=== PATIENT | female | born 1995 | race Caucasian/White ===

== ENCOUNTER 2022-03-11 08:47 | Emergency (ER) | payer BC ==
--- OUTSIDE RECORDS SUMMARY | 2022-03-11 08:50 | XMS REPORT | Continuity of Care Document ---
:1995 Author Organization [facility] t Address [address] [place] [address] Care Team Providers Name Role Phone Mari Haynes MD Primary Care Physician Kera Méndez Attending Clinician Kera Méndez Admitting Clinician Problems Condition Condition Condition Status Onset Resolution Last Treating Co mments Source Name Details Category Date Date Treatment Clinician Date Normal Normal Disease Active Methodi labor labor -20 st 00:00: Hospita 00 l Disease Active Met hodi 5-19 st 00:00: Hospita 00 l Diagnosis Active 2017-2018-06-22 Mem oria ANATOMY US ANATOMY US 06-22 10:57:00 l FOR FOR 10:45: Sravan ANOMALIES, ANOMALIES, 00 CX LENGT CX LENGT Active 06/22/2017 Elbert Episode of Episode of Problem Active C ommon heavy heavy Spirit vaginal vaginal - [facility] bleeding bleeding [facility] Missed Missed Diagnosis Active Common menses menses [facility] Encounter Encounter Problem 2019-01-10 Memoria for for 11:09:45 l Herm arsenio screening screening for for malformati malformati ons ons 01/10/2019 MH Elbert 21 weeks 21 weeks Problem 2019-01-10 Memoria gestation gestation 11:09:45 l of of [place] 01/10/2019 Elbert Dyspareuni Dyspareuni Problem Active C ommon a in a in Spirit female female [facility] History of Past Illness Condition Condition Condition Status Onset Resolution Last Treating Co mments Source Name Details Category Date Date Treatment Clinician Date Encounter Problem 2018-2019-01-10 2019-01-10 Memoria for Encounter 1-16 11:09:45 11:09:45 l for 05:31: Sravan screening 29 for screening cervical for length cervical length 06/27/2018 01/10/2019 Elbert Allergies, Adverse Reactions, Alerts This patient has no known allergies or adverse reactions. Family History Family Member Diagnosis Comments Start Date Stop Date Source Natural father Hypertension [facility] Natural mother Hypertension [facility] Paternal grandfather Diabetes [facility] Paternal grandmother Diabetes [facility] Social History Social Habit Start Date Stop Date Quantity Comments Source History SDVT [facility] Drinks History [facility] Alcohol intake 2018-10-29 2018-10-29 Current [facility] 00:00:00 00:00:00 non-drinker of Hospital alcohol (finding) History [facility] 2018-10-29 2018-10-29 1 [facility] Alcohol Frequency 00:00:00 00:00:00 Hospita l Tobacco use and 2018-10-19 2018-10-19 Smokeless tobacco [facility] exposure 00:00:00 00:00:00 non-user Hospital Sex Assigned At [birth year] [facility] 00:00:00 [facility]:00 Hospital Smoking Status Start Date Stop Date Source Never smoked tobacco [facility] Medications Ordered Filled Start Stop Current Ordering Indication Dosage Frequency Signature Comments Components Source Medication Medication Date Date Medication? Clinician (SIG) Name Name Yes 1{tbl} QD Take 1 Metho di vit,calc76- 5-22 tablet by iron-folic 13:45: mouth Hospit a 29 mg iron- 51 daily. l 1 mg tablet per tablet Mirena (52 Mirena (52 2017- No Abi not Common MG) MG) 10-17 Rowe defined Spirit 00:00 - [facility] :00 [facility] Immunizations Ordered Immunization Filled Immunization Date Status Commen ts Source Name Name Rho (D) Immune 2018-10-30 Completed [facility] Globulin 00:00:00 Hospital Procedures This patient has no known procedures. Plan of Care Planned Activity Planned Date Details Comments Source Future Scheduled 2022-03-11 HEPATITIS B [facility] Test 08:49:33 VACCINES (1 of 3 - 3-dose series) [code = HEPATITIS B VACCINES (1 of 3 - 3-dose series)] Future Scheduled 2022-03-11 COVID-19 VACCINE [facility] Test 08:49:33 (#1) [code = COVID-19 VACCINE (#1)] Future Scheduled 2022-03-11 Screening for [facility] Test 08:49:33 malignant neoplasm of cervix (procedure) [code = 526643818] Future Scheduled 2022-03-11 INFLUENZA VACCINE [facility] Test 08:49:33 [code = INFLUENZA VACCINE] Encounters Start End Encounter Admission Attending Care Care Encounter Source Date/Time Date/Time Type Type Clinicians Facility Department ID 2018-06-22 2018-06-23 Outpatient nullFlavo [facility] [id number] Memoria 16:49:00 05:59:00 r Sravan 01 l Elbert Nandini 2018-06-22 2018-06-22 Outpatient JUSTIN MéndezSL [facility] [id number] 10:49:00 23:59:00 Kera Jazmín 2018-03-28 2018-04-20 PreReg nullFlavo [facility] [id number] Memoria 20:06:50 21:00:00 r [place] 00 l Elbert Nandini 2018-03-28 2018-04-20 Outpatient JUSTIN MéndezSL S [id number] 15:06:50 15:00:00 Kera 00 Jazmín 2018-01-24 2018-01-24 Outpatient Jean Penat 15 [id number] Common 09:00:00 09:00:00 [facility] 2018-01-23 2018-01-23 [facility] [id number] Common 15:52:00 15:52:00 [facility] 2017-11-09 2017-11-09 [place]patient [place] [id number] Common 16:00:00 16:00:00 t [facility] Results This patient has no known results.
[2022-03-11 09:21] LABS: Urine Blood 2+ (Negative); Urine Glucose Trace (Negative); Urine Protein Trace (Negative); Urine pH 5.5 (5.0-7.0)
[2022-03-11 09:49] LABS: Absolute Lymphocytes (CBC) 1.6 K/uL (0.7-4.9); Hematocrit 37.8 % (36.0-45.0); Lymphocytes % 22.3 % (15.3-44.8); MPV 6.6 fL (7.6-11.3); RBC Red Blood Cell Count 4.35 M/uL (3.86-4.86)
[2022-03-11 10:08] LABS: Potassium 3.9 mmol/L (3.5-5.1)
--- NOTE | 2022-03-11 10:57 | RAD REPORT ---
EXAM DESCRIPTION: US - Transvaginal Study Probe - 03/11/2022 10:42 am CLINICAL HISTORY: with vaginal bleeding COMPARISON: 2018 FINDINGS: The uterus measures 6 x 4 x 5 cm. A fibroid is not seen. The endometrial stripe measures 5 millimeters. A gestational sac is not seen. The ovaries are normal in size and echotexture. Prominent small follicles right ovary. 1.6 centimeter follicle left ovary The right and left adnexa unremarkable No significant free fluid is seen. IMPRESSION: Nonvisualization of a gestational sac within the endometrium. This may represent an early intrauterine in which the gestational sac is not yet seen. Abor tion and even an ectopic can also have this appearance. This all should be correlated clini ghanshyam and with serial beta HCG levels. Follow up endovaginal sonogram in 1 week is recommended
--- NOTE | 2022-03-11 11:51 | EDPHYS ---
Physician Documentation [facility] Name: Eileen Lundberg Age: 27 yrs Sex: Female : 1995 Arrival Date: 03/11/2022 Time: 08:48 Bed 4 Private MD: ED Physician David Bethea HPI: 03/11 11:22 This 27 yrs old Female presents to ER via Ambulatory with complaints of some jl9 vaginal bleeding/ spotting last week and then today. Patient thought she was on her period last week. Patient denies any pain. . WHARFINGER CHIEF: 09:06 LMP 02/25/2022 ss 09:10 2, Full Term 1, Premature 0, 0, Living 1 aa5 Historical: - Allergies: 09:06 No Known Allergies; ss - Home Meds: 09:06 None [Active]; ss - PMHx: 09:06 None; ss - PSHx: 09:06 None; ss - Immunization history:: Client reports receiving the 2nd dose of the Covid vaccine. - Social history:: Smoking status: Patient denies any tobacco usage or history of. ROS: 11:34 Constitutional: Negative for fever, chills, and weight loss, Eyes: Negative for injury, jl9 pain, redness, and discharge, ENT: Negative for injury, pain, and discharge, Neck: Negative for injury, pain, and swelling, Cardiovascular: Negative for chest pain, palpitations, and edema, Respiratory: Negative for shortness of breath, cough, wheezing, and pleuritic chest pain, Abdomen/GI: Negative for abdominal pain, nausea, vomiting, diarrhea, and constipation, Back: Negative for injury and pain. 11:34 MS/Extremity: Negative for injury and deformity, Skin: Negative for injury, rash, and discoloration, Neuro: Negative for headache, weakness, numbness, tingling, and seizure, Psych: Negative for depression, anxiety, suicide ideation, homicidal ideation, and hallucinations, Allergy/Immunology: Negative for hives, rash, and allergies, Endocrine: Negative for neck swelling, polydipsia, polyuria, polyphagia, and marked weight changes, Hematologic/Lymphatic: Negative for swollen nodes, abnormal bleeding, and unusual bruising. 11:34 : Positive for hematuria, vaginal bleeding. Exam: 11:35 Constitutional: This is a well developed, well nourished patient who is awake, alert, jl9 and in no acute distress. Head/Face: Normocephalic, atraumatic. Eyes: Pupils equal round and reactive to light, extra-ocular motions intact. Lids and lashes normal. Conjunctiva and sclera are non-icteric and not injected. Cornea within normal limits. Periorbital areas with no swelling, redness, or edema. ENT: Mucous membranes moist. Neck: Trachea midline, no thyromegaly or masses palpated, and no cervical lymphadenopathy. Supple, full range of motion without nuchal rigidity, or vertebral point tenderness. No Meningismus. Chest/axilla: Normal chest wall appearance and motion. Nontender with no deformity. No lesions are appreciated. Cardiovascular: Regular rate and rhythm with a normal S1 and S2. No gallops, murmurs, or rubs. Normal PMI, no JVD. No pulse deficits. Respiratory: Lungs have equal breath sounds bilaterally, clear to auscultation and percussion. No rales, rhonchi or wheezes noted. No increased work of breathing, no retractions or nasal flaring. Abdomen/GI: Soft, non-tender, with normal bowel sounds. No distension or tympany. No guarding or rebound. No evidence of tenderness throughout. Back: No spinal tenderness. No costovertebral tenderness. Full range of motion. 11:35 Skin: Warm, dry with normal turgor. Normal color with no rashes, no lesions, and no evidence of cellulitis. MS/ Extremity: Pulses equal, no cyanosis. Neurovascular intact. Full, normal range of motion. Neuro: Awake and alert, GCS 15, oriented to person, place, time, and situation. Cranial nerves II-XII grossly intact. Motor strength 5/5 in all extremities. Sensory grossly intact. Cerebellar exam normal. Normal gait. Psych: Awake, alert, with orientation to person, place and time. Behavior, mood, and affect are within normal limits. 11:35 : CVA tenderness, is absent, Pelvic Exam: The exam is refused by the patient/guardian. The risks and consequences are understood by the patient. Vital Signs: 09:04 BP 132 / 86; Pulse 71; Resp 14; Temp 98.5(TE); Pulse Ox 99% on R/A; Weight 52.16 kg; ss Height 5 ft. 2 in. (157.48 cm); Pain 07/22; 09:04 Body Mass Index 21.03 (52.16 kg, 157.48 cm) ss MDM: 09:09 Patient medically screened. 9 11:37 Data reviewed: vital signs, nurses notes, lab test result(s), radiologic studies. Counseling: I had a detailed discussion with the patient and/or guardian regarding: the historical points, exam findings, and any diagnostic results supporting the discharge/admit diagnosis, lab results, radiology results, the need for outpatient follow up, an OB/Gyne specialist, to return to the emergency department if symptoms worsen or persist or if there are any questions or concerns that arise at home. 03/11 09:16 Order name: Basic Metabolic Panel [facility] 03/11 09:16 Order name: CBC with Diff 03/11 09:16 Order name: Quantitative Hcg [facility] 03/11 09:21 Order name: Urine --Ancillary (enter results) 03/11 09:21 Order name: Urine Dipstick-Ancillary; Complete Time: 10:25 EDCT 03/11 09:35 Order name: Urine --Ancillary; Complete Time: 10:25 [facility] 03/11 09:16 Order name: IV Saline Lock; Complete Time: 09:38 03/11 09:16 Order name: Labs collected and sent; Complete Time: 09:38 03/11 09:16 Order name: NPO; Complete Time: 09:20 [facility] 03/11 09:16 Order name: OB Limited US 03/11 09:51 Order name: CBC with Automated Diff; Complete Time: 10:25 EDCT 03/11 10:08 Order name: Basic Metabolic Panel; Complete Time: 10:25 EDCT 03/11 10:08 Order name: HCG, Quantitative; Complete Time: 10:25 CT 03/11 10:58 Order name: US; Complete Time: 11:21 EDCT 03/11 09:16 Order name: Urine Dipstick-Ancillary (obtain specimen); Complete Time: 09:21 03/11 09:21 Order name: Urine Test (obtain specimen); Complete Time: 09:21 ss Administered Medications: No medications were administered Disposition: 14:25 Co-signature as Attending Physician, David Bethea MD I agree with the assessment and kdr plan of care. Disposition Summary: 03/11/22 11:51 Discharge Ordered Location: Home jl9 Condition: Stable jl9 Diagnosis - Threatened jl9 - UTI/ Urinary tract infection, site not specified jl9 Followup: jl9 - With: Private Physician - When: 1 - 2 days - Reason: Recheck today's complaints, Continuance of care, Re-evaluation by your physician Discharge Instructions: - Discharge Summary Sheet jl9 - Threatened Miscarriage jl9 - Vaginal Bleeding During , First Trimester jl9 - Urinary Tract Infection, Adult, [id number] jl9 Forms: - Work release form eb - Medication Reconciliation Form jl9 - Thank You Letter jl9 - Antibiotic Education jl9 - Prescription Opioid Use jl9 Prescriptions: - Cephalexin 500 mg Oral Capsule - take 1 capsule by ORAL route every 12 hours for 7 days; 14 capsule; Refills: 0, jl9 Product Selection Permitted Signatures: Dispatcher [employer] EDMS David Bethea MD MD kdr Smirch, Shelby, RN RN ss Pete Meneses jl9 Corrections: (The following items were deleted from the chart) 11:34 11:22 This 27 yrs old Female presents to ER via Ambulatory with complaints of jl9 some vaginal bleeding last week and then today. . jl9 11:49 11:22 This 27 yrs old Female presents to ER via Ambulatory with complaints of jl9 some vaginal bleeding/ spotting last week and then today. Patient thought she was on her period last week. . jl9
--- NOTE | 2022-03-11 11:51 | ER ---
Nurse's Notes [facility] Jean Name: Eileen Lundberg Age: 27 yrs Sex: Female : 1995 Arrival Date: 03/11/2022 Time: 08:48 Bed 4 Private MD: Diagnosis: Threatened ;UTI/ Urinary tract infection, site not specified Presentation: 03/11 09:04 Chief complaint: Patient states: "I had my period two weeks ago, or what I thought was ss my period, but I had a positive home test yesterday and again this am. I called my previous ADMISSIONS CONSULTANT and they told me just to come to the ER to be evaluated for a possible miscarriage." Pt c/o vaginal bleeding and abd cramping. Coronavirus screen: Client denies travel out of the [place] in the last 14 days. Ebola Screen: Patient denies exposure to infectious person. Patient denies travel to an Ebola-affected area in the 21 days before illness onset. Initial Sepsis Screen: Does the patient meet any 2 criteria? No. Patient's initial sepsis screen is negative. Does the patient have a suspected source of infection? No. Patient's initial sepsis screen is negative. Risk Assessment: Do you want to hurt yourself or someone else? Patient reports no desire to harm self or others. Onset of symptoms was February 25, 2022. 09:04 Method Of Arrival: Ambulatory ss 09:04 Acuity: SARAH 3 ss Triage Assessment: 09:06 General: Appears in no apparent distress. comfortable, Behavior is calm, cooperative. ss Pain: Complains of pain in abdomen Pain currently is 2 out of 10 on a pain scale. Quality of pain is described as crampy, Is continuous. : Reports vaginal bleeding that is moderate flow. ADMISSIONS CONSULTANT: 09:06 LMP 02/25/2022 ss 09:10 2, Full Term 1, Premature 0, 0, Living 1 aa5 Historical: - Allergies: 09:06 No Known Allergies; ss - Home Meds: 09:06 None [Active]; ss - PMHx: 09:06 None; ss - PSHx: 09:06 None; ss - Immunization history:: Client reports receiving the 2nd dose of the Covid vaccine. - Social history:: Smoking status: Patient denies any tobacco usage or history of. Screenin:10 Abuse screen: Denies threats or abuse. Nutritional screening: No deficits noted. aa5 Tuberculosis screening: No symptoms or risk factors identified. Fall Risk None identified. Assessment: 09:10 General: Appears comfortable, Behavior is calm, cooperative. Pain: Complains of pain in aa5 right lower quadrant and left lower quadrant Pain currently is 2 out of 10 on a pain scale. Quality of pain is described as crampy, Pain began 3-4 days ago Is intermittent. Neuro: Level of Consciousness is awake, alert, obeys commands, Oriented to person, place, time, situation. Cardiovascular: Heart tones S1 S2 present Rhythm is regular. Respiratory: Airway is patent Respiratory effort is even, unlabored, Respiratory pattern is regular, symmetrical. GI: Abdomen is flat, non-distended, Bowel sounds present X 4 quads. Abd is soft and non tender X 4 quads. : Reports vaginal bleeding that is moderate flow, since Monday. Reports had period February 27 to March 02 and began bleeding again on Monday. EENT: No signs and/or symptoms were reported regarding the EENT system. Derm: Skin is pink, warm \\T\\ dry. Musculoskeletal: Range of motion: intact in all extremities. 10:30 Reassessment: Patient is alert, oriented x 3, equal unlabored respirations, skin aa5 warm/dry/pink. Awaiting results . 10:35 Reassessment: ambulatory to restroom . aa5 Vital Signs: 09:04 BP 132 / 86; Pulse 71; Resp 14; Temp 98.5(TE); Pulse Ox 99% on R/A; Weight 52.16 kg; ss Height 5 ft. 2 in. (157.48 cm); Pain 2/10; 09:04 Body Mass Index 21.03 (52.16 kg, 157.48 cm) ED Course: 08:48 Patient arrived in ED. mr 09:06 Triage completed. ss 09:06 Arm band placed on left wrist. 09:09 Pete Meneses is PHCP. jl9 09:09 David Bethea MD is Attending Physician. jl9 09:10 Patient has correct armband on for positive identification. Placed in gown. Bed in low aa5 position. Call light in reach. Side rails up X 1. 09:11 Lindy Morales, RN is Primary Nurse. aa5 09:43 Basic Metabolic Panel Sent. em1 09:43 CBC with Diff Sent. em1 09:43 Quantitative Hcg Sent. em1 09:43 Initial lab(s) drawn, by me, sent to lab. Inserted saline lock: 20 gauge in right em1 antecubital area, using aseptic technique. Blood collected. 12:14 No provider procedures requiring assistance completed. IV discontinued, intact, jl7 bleeding controlled, No redness/swelling at site. Pressure dressing applied. Administered Medications: No medications were administered Medication: 12:14 VIS not applicable for this client. jl7 Outcome: 11:51 Discharge ordered by MD. jl9 12:14 Discharged to home ambulatory, with significant other. jl7 12:14 Condition: stable 12:14 Discharge instructions given to patient, significant other, Instructed on discharge instructions, follow up and referral plans. medication usage, Demonstrated understanding of instructions, follow-up care, medications, Prescriptions given X 1. 12:16 Patient left the ED. jl7 Signatures: Linn Moore mr Larson, Ishan em1 Lindy Morales, RN RN aa5 Dana Ballesteros RN RN Sydni Najera RN RN jl7 Pete Meneses jl9 Corrections: (The following items were deleted from the chart) 09:41 09:10 2, Full Term 0, Premature 0, 0, Living 1 aa5 aa5
--- NOTE | 2022-03-11 17:46 | RAD REPORT ---
EXAM DESCRIPTION: US - Pelvis Complete - 03/11/2022 10:10 am CLINICAL HISTORY: with vaginal bleeding COMPARISON: 2018 FINDINGS: The uterus measures 6 x 4 x 5 cm. A fibroid is not seen. The endometrial stripe measures 5 millimeters. A gestational sac is not seen. The ovaries are normal in size and echotexture. Prominent small follicles right ovary. 1.6 centimeter follicle left ovary The right and left adnexa unremarkable No significant free fluid is seen. IMPRESSION: Nonvisualization of a gestational sac within the endometrium. This may represent an early intrauterine in which the gestational sac is not yet seen. Abor tion and even an ectopic can also have this appearance. This all should be correlated clini ghanshyam and with serial beta HCG levels. Follow up endovaginal sonogram in 1 week is recommended
[2022-03-12 02:15] VITALS: BP 132/86; TEMP 98.5; O2SAT 99
== END 2022-03-11 12:16 | disposition home or self-care (01) ==
LOC: ER 08:47
DX: O20.0 Threatened abortion (principal); N39.0 Urinary tract infection, site not specified
CPT/HCPCS: 36415; 76830; 76856; 80048; 81003; 81025; 84702; 85025; 99283